=== PATIENT | female | born 1950 | race Caucasian/White ===

== ENCOUNTER 2020-01-24 10:00 | Day surgery (SDC) | payer MEDICARE ==
[~2020-01-24 10:00] MED LIST: ASPI81TA52 PO; ATOR40TA PO; CARV3.12 PO; FURO-150 PO; LISI-600 PO; METF500T PO; POTA10TA19 PO; VARE0.5T PO
[2020-01-24] MEDS ORDERED: LIDOcaine 2% 5ml jelly ONE (10:54)
== END 2020-01-24 11:48 | disposition home or self-care (01) ==
LOC: WOUND CARE 10:00
PROVIDERS: ATTEND Nurse Practitioner
DX: E11.621 Type 2 diabetes mellitus with foot ulcer (principal); L97.522 Non-pressure chronic ulcer of other part of left foot with fat layer exposed; E11.22 Type 2 diabetes mellitus with diabetic chronic kidney disease; I13.0 Hypertensive heart and chronic kidney disease with heart failure and stage 1 through stage 4 chronic kidney disease, or unspecified chronic kidney disease; I50.9 Heart failure, unspecified; N18.30 Chronic kidney disease, stage 3 unspecified; E11.69 Type 2 diabetes mellitus with other specified complication; M86.9 Osteomyelitis, unspecified; E78.5 Hyperlipidemia, unspecified; I42.9 Cardiomyopathy, unspecified; F17.200 Nicotine dependence, unspecified, uncomplicated; F15.90 Other stimulant use, unspecified, uncomplicated; Z90.49 Acquired absence of other specified parts of digestive tract; Z79.82 Long term (current) use of aspirin; Z79.84 Long term (current) use of oral hypoglycemic drugs; Z79.899 Other long term (current) drug therapy
CPT/HCPCS: 36416; 82948; 97597; 97598

== ENCOUNTER 2020-02-07 12:08 | Outpatient (CLI) | payer MEDICARE ==
[2020-02-07] MEDS ORDERED: LIDOcaine 2% 5ml jelly ONE (12:34)
[2020-02-07 13:41] LABS: BASOPHILS % (AUTO) 0.4 % (0-1); EOSINOPHILS # (AUTO) 0.3 X10'3 (0-0.9); EOSINOPHILS % (AUTO) 2.8 % (0-6); HEMATOCRIT 36.8 % (35.0-45.0); HEMOGLOBIN 11.7 g/dl (12.0-16.0); LYMPHOCYTES # (AUTO) 2.7 X10'3 (1.1-4.8); MEAN CORPUSCULAR HEMOGLOBIN 27.9 PG (27.0-31.0); MEAN CORPUSCULAR HGB CONC 31.7 g/dL (33.0-36.5); MEAN CORPUSCULAR VOLUME 88.2 FL (78-98); MEAN PLATELET VOLUME 8.8 FL (7.4-10.4); MONOCYTES % (AUTO) 8.7 % (2-12); NEUTROPHILS # (AUTO) 7.5 X10'3 (1.8-7.7); NEUTROPHILS % (AUTO) 65.1 % (42-75); PLATELET COUNT 290 X10'3 (140-440); RED BLOOD COUNT 4.17 X10'6 (4.20-5.60); RED CELL DISTRIBUTION WIDTH 15.6 % (11.5-14.5); WHITE BLOOD COUNT 11.6 X10'3 (4.5-11.0)
[2020-02-07 14:01] LABS: ALANINE AMINOTRANSFERASE 13 U/L (12-78); ALBUMIN 3.2 G/DL (3.4-5.0); ALBUMIN/GLOBULIN RATIO 0.7 (1.1-1.5); ALKALINE PHOSPHATASE 99 IU/L (46-116); ANION GAP 13 (8-16); ASPARTATE AMINO TRANSFERASE 18 U/L (10-37); BILIRUBIN,TOTAL 0.4 MG/DL (0.1-1.0); BLOOD UREA NITROGEN 16 MG/DL (7-18); BUN/CREATININE RATIO 10.2 (6.6-38.0); C-REACTIVE PROTEIN 5.38 MG/DL (0.0-0.5); CALCIUM 9.2 MG/DL (8.5-10.1); CHLORIDE 104 MMOL/L (99-107); CREATININE 1.57 MG/DL (0.40-0.90); GLUCOSE 96 MG/DL (70-104); POTASSIUM 4.4 MMOL/L (3.5-5.1); SODIUM 142 MMOL/L (135-145); TOTAL CARBON DIOXIDE 25.3 MMOL/L (24-32); TOTAL PROTEIN 8.1 G/DL (6.4-8.2); eGFR 33 ML/MIN
[2020-02-07 16:12] LABS: HEMOGLOBIN A1C 6.8 % (4.5-6.2)
== END 2020-02-07 23:59 | disposition home or self-care (01) ==
LOC: WOUND CARE 12:08
PROVIDERS: ATTEND Nurse Practitioner
DX: E11.621 Type 2 diabetes mellitus with foot ulcer (principal); L97.523 Non-pressure chronic ulcer of other part of left foot with necrosis of muscle; E11.22 Type 2 diabetes mellitus with diabetic chronic kidney disease; I13.0 Hypertensive heart and chronic kidney disease with heart failure and stage 1 through stage 4 chronic kidney disease, or unspecified chronic kidney disease; N18.30 Chronic kidney disease, stage 3 unspecified; I50.9 Heart failure, unspecified; M86.9 Osteomyelitis, unspecified; E78.5 Hyperlipidemia, unspecified; I42.9 Cardiomyopathy, unspecified; F17.200 Nicotine dependence, unspecified, uncomplicated; F15.90 Other stimulant use, unspecified, uncomplicated; Z90.49 Acquired absence of other specified parts of digestive tract; Z79.82 Long term (current) use of aspirin; Z79.84 Long term (current) use of oral hypoglycemic drugs; Z79.899 Other long term (current) drug therapy
CPT/HCPCS: 11043; 36415; 36416; 73630; 80053; 82948; 83036; 85025; 85651; 86140; 87070; 87075; 87077; 87102; 87186

== ENCOUNTER → 2020-02-14 | Outpatient (CLI) | payer MEDICARE ==
[~2020-02-14] MED LIST changes: +LIDOcaine 2% 5ml jelly ONE
== END | disposition home or self-care (01) ==
LOC: WOUND CARE 12:04 → EDSTATUS 12:20
PROVIDERS: ATTEND Nurse Practitioner
DX: E11.621 Type 2 diabetes mellitus with foot ulcer (principal); L97.523 Non-pressure chronic ulcer of other part of left foot with necrosis of muscle; E11.65 Type 2 diabetes mellitus with hyperglycemia; E11.69 Type 2 diabetes mellitus with other specified complication; E11.40 Type 2 diabetes mellitus with diabetic neuropathy, unspecified; I13.0 Hypertensive heart and chronic kidney disease with heart failure and stage 1 through stage 4 chronic kidney disease, or unspecified chronic kidney disease; N18.30 Chronic kidney disease, stage 3 unspecified; I50.9 Heart failure, unspecified; M86.9 Osteomyelitis, unspecified; E78.5 Hyperlipidemia, unspecified; I42.9 Cardiomyopathy, unspecified; F17.200 Nicotine dependence, unspecified, uncomplicated; F15.90 Other stimulant use, unspecified, uncomplicated; Z90.49 Acquired absence of other specified parts of digestive tract; Z79.82 Long term (current) use of aspirin; Z79.84 Long term (current) use of oral hypoglycemic drugs; Z79.899 Other long term (current) drug therapy
CPT/HCPCS: 11043; 36416; 82948

== ENCOUNTER 2020-08-11 10:17 | Emergency (ER) | payer MEDICARE ==
[~2020-08-11] VITALS: Ht 170.2 cm; Wt 77.3 kg
[~2020-08-11 10:17] MED LIST changes: -LIDOcaine 2% 5ml jelly ONE; -LISI-600 PO; +LISI20TA28 PO
[2020-08-11] MEDS ORDERED: normal saline 1000ML IV soln IV ONE (10:55)
[2020-08-11] MEDS ORDERED: piperacillin/tazo 3.375gm/50ml 50 ML IV ONE (10:55)
[2020-08-11] MEDS ORDERED: vancomycin/NS 1 GM ADD-VANTAGE 250 ML IV ONE (10:55)
[2020-08-11 11:32] LABS: BASOPHILS # (AUTO) 0.1 X10'3 (0-0.2); BASOPHILS % (AUTO) 0.6 % (0-1); EOSINOPHILS # (AUTO) 0.2 X10'3 (0-0.9); HEMATOCRIT 27.4 % (35.0-45.0); HEMOGLOBIN 8.6 g/dl (12.0-16.0); LYMPHOCYTES # (AUTO) 2.2 X10'3 (1.1-4.8); LYMPHOCYTES % (AUTO) 11.3 % (21-51); MEAN CORPUSCULAR HEMOGLOBIN 26.5 PG (27.0-31.0); MEAN CORPUSCULAR HGB CONC 31.3 g/dL (33.0-36.5); MEAN CORPUSCULAR VOLUME 84.6 FL (78-98); MEAN PLATELET VOLUME 8.8 FL (7.4-10.4); MONOCYTES # (AUTO) 1.2 X10'3 (0-0.9); MONOCYTES % (AUTO) 5.9 % (2-12); NEUTROPHILS # (AUTO) 15.9 X10'3 (1.8-7.7); NEUTROPHILS % (AUTO) 81.2 % (42-75); PLATELET COUNT 468 X10'3 (140-440); RED BLOOD COUNT 3.24 X10'6 (4.20-5.60); RED CELL DISTRIBUTION WIDTH 18.3 % (11.5-14.5); WHITE BLOOD COUNT 19.6 X10'3 (4.5-11.0)
[2020-08-11 11:54] LABS: ALANINE AMINOTRANSFERASE 21 U/L (12-78); ALBUMIN 2.1 G/DL (3.4-5.0); ALBUMIN/GLOBULIN RATIO 0.4 (1.1-1.5); ALKALINE PHOSPHATASE 116 IU/L (46-116); ANION GAP 11 (8-16); ASPARTATE AMINO TRANSFERASE 22 U/L (10-37); BILIRUBIN,TOTAL 0.3 MG/DL (0.1-1.0); BLOOD UREA NITROGEN 23 MG/DL (7-18); BUN/CREATININE RATIO 14.4 (6.6-38.0); CALCIUM 8.6 MG/DL (8.5-10.1); CHLORIDE 99 MMOL/L (99-107); GLUCOSE 140 MG/DL (70-104); POTASSIUM 4.5 MMOL/L (3.5-5.1); SODIUM 136 MMOL/L (135-145); TOTAL CARBON DIOXIDE 25.7 MMOL/L (24-32); TOTAL PROTEIN 7.8 G/DL (6.4-8.2); eGFR 32 ML/MIN
--- NOTE | 2020-08-11 12:06 | NUR ---
VASAyaan AT BEDSIDE, HAS FINISHED.
[2020-08-11 13:41] LABS: URINE AMPHETAMINE SCREEN NEGATIVE (Neg); URINE BARBITUATE SCREEN NEGATIVE (Neg); URINE BENZODIAZEPINES SCREEN NEGATIVE (Neg); URINE CANNABINOID SCREEN NEGATIVE (Neg); URINE COCAINE SCREEN NEGATIVE (Neg); URINE METHADONE SCREEN NEGATIVE (Neg); URINE OPIATE SCREEN POSITIVE (Neg); URINE PHENCYCLIDINE SCREEN NEGATIVE (Neg)
[2020-08-11] MEDS ORDERED: morphine 4 MG/ML inj SYRINge IV ONE (14:00)
[2020-08-11] MEDS ORDERED: normal saline 1000ML IV soln IVB ONE (14:05)
[2020-08-11 15:52] VITALS: BP 104/71
== END 2020-08-11 15:55 | disposition short-term general hospital (02) ==
LOC: ER 10:18
DX: S31.104A Unspecified open wound of abdominal wall, left lower quadrant without penetration into peritoneal cavity, initial encounter (principal); Z20.822 Contact with and (suspected) exposure to COVID-19; A41.9 Sepsis, unspecified organism; E11.59 Type 2 diabetes mellitus with other circulatory complications; I10 Essential (primary) hypertension; Z90.89 Acquired absence of other organs; Z90.49 Acquired absence of other specified parts of digestive tract; Z98.890 Other specified postprocedural states; Z56.0 Unemployment, unspecified; Z79.82 Long term (current) use of aspirin; Z79.4 Long term (current) use of insulin; Z79.899 Other long term (current) drug therapy; X58.XXXA Exposure to other specified factors, initial encounter; Y93.89 Activity, other specified; Y92.89 Other specified places as the place of occurrence of the external cause; Y99.8 Other external cause status
CPT/HCPCS: 36415; 51702; 80053; 80305; 83605; 84145; 85025; 87040; 87077; 87186; 87635; 93005; 93922; 93926; 96361; 96365; 96366; 96368; 96375; 99291; C9803; J2270; J2543; J3370; J7030

== ENCOUNTER 2022-01-04 01:19 | Inpatient (IN) | payer MEDICARE ==
[~2022-01-04] VITALS: Ht 170.2 cm; Wt 77.4 kg
[2022-01-04] VITALS (15 sets, daily range): BP systolic 73–155; BP diastolic 40–70
[~2022-01-04 01:19] MED LIST changes: +POTA-192 PO; -POTA10TA19 PO
[2022-01-04] MEDS: K and/or MAG REPLACEMENT MC SCH ×2 (01:44→20:59)
[2022-01-04] MEDS ORDERED: normal saline 1000ML IV soln IVB ONE ×2 (02:05)
[2022-01-04] MEDS ORDERED: piperacillin/tazo 3.375gm/50ml 50 ML IV ONE (02:05)
[2022-01-04] MEDS ORDERED: vancomycin/NS 1 GM ADD-VANTAGE 250 ML IV ONE (02:05)
[2022-01-04 02:06] LABS: MEAN CORPUSCULAR HGB CONC 32.1 g/dL (33.0-36.5)
[2022-01-04 02:08] LABS: BASOPHILS # (AUTO) 0.1 X10'3 (0-0.2); BASOPHILS % (AUTO) 0.3 % (0-1); EOSINOPHILS % (AUTO) 0.1 % (0-6); HEMATOCRIT 41.3 % (35.0-45.0); HEMOGLOBIN 13.2 g/dl (12.0-16.0); LYMPHOCYTES # (AUTO) 0.6 X10'3 (1.1-4.8); LYMPHOCYTES % (AUTO) 2.9 % (21-51); MEAN CORPUSCULAR HEMOGLOBIN 26.7 PG (27.0-31.0); MEAN CORPUSCULAR VOLUME 83.3 FL (78-98); MEAN PLATELET VOLUME 8.9 FL (7.4-10.4); MONOCYTES # (AUTO) 0.4 X10'3 (0-0.9); NEUTROPHILS # (AUTO) 19.2 X10'3 (1.8-7.7); NEUTROPHILS % (AUTO) 94.7 % (42-75); PLATELET COUNT 483 X10'3 (140-440); RED BLOOD COUNT 4.96 X10'6 (4.20-5.60); RED CELL DISTRIBUTION WIDTH 16.6 % (11.5-14.5); WHITE BLOOD COUNT 20.3 X10'3 (4.5-11.0)
[2022-01-04] MEDS ORDERED: acetaminophen 325mg tablet PO ONE (02:10)
[2022-01-04 02:21] LABS: ALANINE AMINOTRANSFERASE 18 U/L (12-78); ALBUMIN/GLOBULIN RATIO 0.5 (1.1-1.5); ALKALINE PHOSPHATASE 116 IU/L (46-116); ANION GAP 12 (8-16); ASPARTATE AMINO TRANSFERASE 18 U/L (10-37); BILIRUBIN,TOTAL 0.5 MG/DL (0.1-1.0); BLOOD UREA NITROGEN 24 MG/DL (7-18); BUN/CREATININE RATIO 13.2 (6.6-38.0); CALCIUM 9.1 MG/DL (8.5-10.1); CHLORIDE 92 MMOL/L (99-107); CREATININE 1.82 MG/DL (0.40-0.90); GLUCOSE 187 MG/DL (70-104); POTASSIUM 3.5 MMOL/L (3.5-5.1); SODIUM 135 MMOL/L (135-145); TOTAL CARBON DIOXIDE 30.6 MMOL/L (24-32); TOTAL PROTEIN 9.1 G/DL (6.4-8.2); eGFR 28 ML/MIN
[2022-01-04] MEDS ORDERED: aspirin 325mg tablet PO ONE ×2 (02:30→03:20)
[2022-01-04 03:08] LABS: C-REACTIVE PROTEIN 23.29 MG/DL (0.0-0.5)
[2022-01-04] MEDS: normal saline 1000ml 1,000 ML IV SCH ×2 (03:40→23:40)
[2022-01-04] MEDS ORDERED: magnesium 2GM in 50ml NS 50 ML IV PRN (03:40)
[2022-01-04] MEDS ORDERED: ondansetron/PF 4mg/2ml inj IV PRN ×2 (03:40→15:40)
[2022-01-04] MEDS ORDERED: magnesium 4gm in 100ml NS 100 ML IV PRN (03:40)
[2022-01-04] MEDS ORDERED: magnesium Cl slow-release 64mg tablet PO PRN (03:40)
[2022-01-04] MEDS ORDERED: acetaminophen 325mg tablet PO PRN (03:40)
[2022-01-04] MEDS ORDERED: POTASSIUM BICARB 20meq eff tab 20 MEQ TABLET.EFF PO PRN (03:40)
[2022-01-04] MEDS ORDERED: magnesium hydroxide 30ml (MOM) UD suspension PO PRN (03:40)
[2022-01-04] MEDS ORDERED: morphine 2 MG/ML inj. syringe IV PRN ×2 (03:40→15:40)
[2022-01-04] MEDS ORDERED: PERFLUTREN PROTEIN-A MICROSPHR (Optison) 0.22 MG/ML 3ML VIAL IV ONE (03:40)
[2022-01-04] MEDS ORDERED: mag hydrox/Alum hydrox/simeth 30ml oral suspension PO PRN (03:40)
[2022-01-04] MEDS ORDERED: MESSAGE TO PHARMACY PO ONE (03:50)
[2022-01-04] MEDS ORDERED: dextrose 50%-water 50ml dispensing syringe IV PRN ×2 (03:50)
[2022-01-04] MEDS ORDERED: glucagon, human recombinant 1mg kit SUBCUT PRN (03:50)
[2022-01-04] MEDS ORDERED: DEXTROSE 15 GM of carb/4 tabs (each vial/BOTTLE has 4 tablets) PO PRN ×2 (03:50)
[2022-01-04] MEDS ORDERED: insulin Lispro (HumaLOG) vial - multi-dose SQ SCH (03:50)
[2022-01-04] MEDS ORDERED: PERFLUTREN PROTEIN-A MICROSPHR (Optison) 0.22 MG/ML 3ML VIAL IV PRN (04:10)
[2022-01-04 04:22] LABS: HEMOGLOBIN A1C 6.6 % (4.5-6.2)
[2022-01-04 04:43] LABS: CLARITY,URINE SLIGHTLY CLOUDY (Clear); COLOR,URINE YELLOW (Yellow); GLUCOSE, URINE NEGATIVE (Neg); KETONES,URINE NEGATIVE (Neg); LEUKOCYTE ESTERASE ,URINE SMALL (Neg); NITRITES, URINE POSITIVE (Neg); OCCULT BLOOD,URINE MODERATE (Neg); PH,URINE 5.5 (4.8-8.0); PROTEIN,URINE NEGATIVE (Neg)
[2022-01-04 04:44] LABS: UA COLLECTION TYPE CLN CATCH MIDSTREAM
[2022-01-04 04:49] LABS: BACTERIA,URINE 4+ /HPF (Neg); SQUAMOUS EPITHELIAL CELL,UR MANY /LPF (FEW)
[2022-01-04 04:50] LABS: WBC,URINE 20-30 /HPF (0-4)
[2022-01-04] MEDS: docusate sod 100mg capsule PO SCH ×2 (08:00→19:52)
[2022-01-04] MEDS: heparin, porcine 5000 units/ml vial SQ SCH ×2 (08:00→16:00)
[2022-01-04] MEDS ORDERED: GABA600T13 PO (08:37)
[2022-01-04] MEDS: piperacillin/tazo 3.375gm/50ml 50 ML IV SCH ×2 (12:34→18:00)
[2022-01-04] MEDS ORDERED: midazolam 1 mg/ML 2ml injection ONE (13:40)
[2022-01-04] MEDS ORDERED: fentaNYL /PF 50mcg/ml 5ml ampule ONE (13:40)
[2022-01-04] MEDS ORDERED: sevoflurane 250ml liquid IH ONE (13:54)
[2022-01-04] MEDS ORDERED: albuterol 60 PUFF/8GM Inhaler IH ONE (13:54)
[2022-01-04] MEDS ORDERED: ePHEDrine 50MG/ML INJ. ONE (13:54)
[2022-01-04] MEDS ORDERED: PHENYLephrine 10mg/ml 5ml injection IV ONE (13:54)
[2022-01-04] MEDS ORDERED: ondansetron/PF 4mg/2ml inj ONE (14:53)
[2022-01-04] MEDS ORDERED: dexamethasone sod phosphate 4mg/ml inj. ONE (14:53)
[2022-01-04] MEDS ORDERED: etomidate 2mg/ml inj. ONE (14:53)
[2022-01-04] MEDS ORDERED: rocuronium 10mg/ml inj IV ONE (14:53)
[2022-01-04] MEDS ORDERED: albumin (Human) 5% 250ml 750 ML IV ONE (14:53)
[2022-01-04] MEDS ORDERED: LIDOcaine 2% (20mg/ml) 5ml vial ONE (14:53)
[2022-01-04] MEDS ORDERED: sugammadex 200mg/2ml injection IV ONE (15:11)
[2022-01-04] MEDS ORDERED: ipratropium/albuterol 3ml nebule NEB PRN (15:30)
[2022-01-04] MEDS ORDERED: ringers solution, lacted 1,000 ML IV SCH (15:40)
[2022-01-04] MEDS ORDERED: HYDROmorphone/PF 0.2 MG/ML SYRINGE IV PRN (15:40)
[2022-01-04 15:53] LABS: ABG BASE EXCESS 1.1 mmol/L (-2.0-2.0); ABG HCO3 28.2 mmol/L (22.0-26.0); ABG PCO2 (T) 57.8 mmHg (32.0-45.0); ABG PO2 (T) 133.6 mmHg (75.0-100.0); FCOHb 0.3 % (0.0-3.9); FLOW 8 L/min; FMetHb 0.2 % (0.0-1.5); FO2Hb 97.5 % (94-97); TOTAL HEMOGLOBIN 10.6 G/dl (12.0-16.0)
[2022-01-04] MEDS ORDERED: clindamycin-Cleocin 900mg/D5W 50 ML IV SCH (16:00)
[2022-01-04] MEDS: HYDROmorphone/PF 0.2 MG/ML SYRINGE IV PRN ×2 (16:34→17:16)
[2022-01-04] MEDS ORDERED: ringers solution, lacted 1,000 ML IV ONE (17:45)
[2022-01-04] MEDS: morphine 2 MG/ML inj. syringe IV PRN (19:52)
[2022-01-04] MEDS: ringers solution, lacted 1,000 ML IV SCH (20:30)
[2022-01-04] MEDS: insulin glargine (Lantus) pen - multi-dose SQ SCH (21:00)
[2022-01-04] MEDS ORDERED: gabapentin 400mg capsule PO SCH (21:00)
[2022-01-04] MEDS ORDERED: gabapentin 300mg capsule PO ONE (21:15)
[2022-01-04] MEDS ORDERED: HYDROcodone/acetaminophen 10/325mg tab PO PRN (21:40)
[2022-01-04] MEDS: HYDROcodone/acetaminophen 10/325mg tab PO PRN (21:40)
[2022-01-05] MEDS: ringers solution, lacted 1,000 ML IV SCH (00:25)
[2022-01-05] MEDS: VANCOMYCIN 750MG IV in NS 250 ML IV SCH (01:58)
[2022-01-05 02:00] VITALS: BP 144/79
[2022-01-05] MEDS: piperacillin/tazo 3.375gm/50ml 50 ML IV SCH ×3 (02:00→19:41)
[2022-01-05] MEDS: HYDROcodone/acetaminophen 10/325mg tab PO PRN ×3 (02:05→16:29)
[2022-01-05 05:56] LABS: BASOPHILS % (AUTO) 0.2 % (0-1); EOSINOPHILS % (AUTO) 0 % (0-6); HEMATOCRIT 28.9 % (35.0-45.0); HEMOGLOBIN 9.3 g/dl (12.0-16.0); LYMPHOCYTES # (AUTO) 1.2 X10'3 (1.1-4.8); LYMPHOCYTES % (AUTO) 7.8 % (21-51); MEAN CORPUSCULAR HEMOGLOBIN 27.1 PG (27.0-31.0); MEAN CORPUSCULAR HGB CONC 32.1 g/dL (33.0-36.5); MEAN CORPUSCULAR VOLUME 84.4 FL (78-98); MEAN PLATELET VOLUME 8.6 FL (7.4-10.4); MONOCYTES # (AUTO) 0.8 X10'3 (0-0.9); NEUTROPHILS # (AUTO) 13.3 X10'3 (1.8-7.7); PLATELET COUNT 330 X10'3 (140-440); RED BLOOD COUNT 3.43 X10'6 (4.20-5.60); RED CELL DISTRIBUTION WIDTH 16.4 % (11.5-14.5); WHITE BLOOD COUNT 15.3 X10'3 (4.5-11.0)
[2022-01-05 06:00] VITALS: BP 119/70
[2022-01-05 06:19] LABS: ALANINE AMINOTRANSFERASE 20 U/L (12-78); ALBUMIN 2.4 G/DL (3.4-5.0); ALBUMIN/GLOBULIN RATIO 0.6 (1.1-1.5); ALKALINE PHOSPHATASE 92 IU/L (46-116); ANION GAP 7 (8-16); ASPARTATE AMINO TRANSFERASE 36 U/L (10-37); BILIRUBIN,TOTAL 0.4 MG/DL (0.1-1.0); BLOOD UREA NITROGEN 15 MG/DL (7-18); BUN/CREATININE RATIO 12.7 (6.6-38.0); CALCIUM 7.5 MG/DL (8.5-10.1); CHLORIDE 108 MMOL/L (99-107); CREATININE 1.18 MG/DL (0.40-0.90); GLUCOSE 135 MG/DL (70-104); PHOSPHORUS 3.9 MG/DL (2.3-4.5); POTASSIUM 3.1 MMOL/L (3.5-5.1); SODIUM 145 MMOL/L (135-145); TOTAL CARBON DIOXIDE 29.9 MMOL/L (24-32); TOTAL PROTEIN 6.4 G/DL (6.4-8.2); eGFR 45 ML/MIN
[2022-01-05] MEDS: docusate sod 100mg capsule PO SCH ×2 (07:37→19:35)
[2022-01-05] MEDS: heparin, porcine 5000 units/ml vial SQ SCH ×3 (07:38→16:30)
[2022-01-05] MEDS: gabapentin 300mg capsule PO SCH ×2 (07:38→19:35)
[2022-01-05 11:00] VITALS: BP 124/80
[2022-01-05] MEDS: albuterol 2.5 MG/3 ML nebule NEB SCH ×4 (12:00→23:21)
[2022-01-05 15:00] VITALS: BP 121/76
[2022-01-05] MEDS ORDERED: ALBU1POW2 IH (15:39)
[2022-01-05] MEDS ORDERED: ASPI-1265 PO (15:39)
[2022-01-05 18:00] VITALS: BP 147/66
[2022-01-05] MEDS: K and/or MAG REPLACEMENT MC SCH (20:00)
[2022-01-05] MEDS: insulin glargine (Lantus) pen - multi-dose SQ SCH (20:53)
[2022-01-05] MEDS ORDERED: non-formulary drug (Albuterol 2 PUFFS) NEB PRN (21:50)
[2022-01-06] MEDS: heparin, porcine 5000 units/ml vial SQ SCH ×4 (00:14→23:04)
[2022-01-06] MEDS: ringers solution, lacted 1,000 ML IV SCH (00:23)
[2022-01-06] MEDS: HYDROcodone/acetaminophen 10/325mg tab PO PRN ×3 (01:37→21:12)
[2022-01-06] MEDS: VANCOMYCIN 750MG IV in NS 250 ML IV SCH (01:38)
[2022-01-06] MEDS: piperacillin/tazo 3.375gm/50ml 50 ML IV SCH ×2 (01:38→11:00)
[2022-01-06 02:00] VITALS: BP 151/79
[2022-01-06] MEDS: albuterol 2.5 MG/3 ML nebule NEB SCH ×6 (03:17→23:47)
[2022-01-06] MEDS: morphine 2 MG/ML inj. syringe IV PRN (05:15)
[2022-01-06 06:00] VITALS: BP 96/44
[2022-01-06 06:46] LABS: BASOPHILS # (AUTO) 0.1 X10'3 (0-0.2); BASOPHILS % (AUTO) 0.5 % (0-1); EOSINOPHILS # (AUTO) 0.2 X10'3 (0-0.9); EOSINOPHILS % (AUTO) 1.5 % (0-6); HEMATOCRIT 26.4 % (35.0-45.0); HEMOGLOBIN 8.6 g/dl (12.0-16.0); LYMPHOCYTES # (AUTO) 2.1 X10'3 (1.1-4.8); LYMPHOCYTES % (AUTO) 17.3 % (21-51); MEAN CORPUSCULAR HEMOGLOBIN 27.5 PG (27.0-31.0); MEAN CORPUSCULAR HGB CONC 32.4 g/dL (33.0-36.5); MEAN CORPUSCULAR VOLUME 84.8 FL (78-98); MEAN PLATELET VOLUME 8.5 FL (7.4-10.4); MONOCYTES # (AUTO) 0.8 X10'3 (0-0.9); MONOCYTES % (AUTO) 6.7 % (2-12); NEUTROPHILS # (AUTO) 9.1 X10'3 (1.8-7.7); PLATELET COUNT 330 X10'3 (140-440); RED BLOOD COUNT 3.11 X10'6 (4.20-5.60); RED CELL DISTRIBUTION WIDTH 16.3 % (11.5-14.5); WHITE BLOOD COUNT 12.3 X10'3 (4.5-11.0)
[2022-01-06 07:02] LABS: ALANINE AMINOTRANSFERASE 18 U/L (12-78); ALBUMIN/GLOBULIN RATIO 0.5 (1.1-1.5); ALKALINE PHOSPHATASE 78 IU/L (46-116); ANION GAP 7 (8-16); ASPARTATE AMINO TRANSFERASE 32 U/L (10-37); BILIRUBIN,TOTAL 0.4 MG/DL (0.1-1.0); BLOOD UREA NITROGEN 15 MG/DL (7-18); BUN/CREATININE RATIO 12.1 (6.6-38.0); CALCIUM 7.8 MG/DL (8.5-10.1); CHLORIDE 108 MMOL/L (99-107); CREATININE 1.24 MG/DL (0.40-0.90); GLUCOSE 122 MG/DL (70-104); MAGNESIUM 1.9 MG/DL (1.5-2.4); SODIUM 145 MMOL/L (135-145); TOTAL CARBON DIOXIDE 30.5 MMOL/L (24-32); TOTAL PROTEIN 5.8 G/DL (6.4-8.2); eGFR 43 ML/MIN
[2022-01-06 07:04] LABS: POTASSIUM 2.9 MMOL/L (3.5-5.1)
[2022-01-06] MEDS: aspirin 81mg tab.chew PO SCH (07:41)
[2022-01-06] MEDS: gabapentin 300mg capsule PO SCH ×3 (07:42→21:11)
[2022-01-06] MEDS: furosemide 20MG tablet PO SCH ×2 (07:42→21:12)
[2022-01-06] MEDS: docusate sod 100mg capsule PO SCH ×2 (07:42→21:12)
[2022-01-06] MEDS: atorvastatin 20mg tablet PO SCH (07:42)
[2022-01-06 07:48] VITALS: BP 130/68
[2022-01-06] MEDS: K and/or MAG REPLACEMENT MC SCH ×2 (08:00→20:00)
[2022-01-06] MEDS: potassium CL 10mEq/100ml bag 100 ML IV PRN ×4 (08:45→19:49)
[2022-01-06 12:00] VITALS: BP 134/80
[2022-01-06 15:00] VITALS: BP 105/55
[2022-01-06 18:00] VITALS: BP 151/73
[2022-01-06] MEDS: insulin glargine (Lantus) pen - multi-dose SQ SCH (21:00)
[2022-01-06] MEDS: POTASSIUM BICARB 20meq eff tab 20 MEQ TABLET.EFF PO PRN (22:45)
[2022-01-07] MEDS ORDERED: VANCOMYCIN LEVEL IV ONE (01:30)
[2022-01-07 02:00] VITALS: BP 145/79
[2022-01-07] MEDS: albuterol 2.5 MG/3 ML nebule NEB SCH ×4 (03:15→14:42)
[2022-01-07] MEDS: POTASSIUM BICARB 20meq eff tab 20 MEQ TABLET.EFF PO PRN (03:15)
[2022-01-07 06:00] VITALS: BP 151/77
[2022-01-07 06:22] LABS: BASOPHILS # (AUTO) 0.1 X10'3 (0-0.2); BASOPHILS % (AUTO) 0.9 % (0-1); EOSINOPHILS # (AUTO) 0.6 X10'3 (0-0.9); EOSINOPHILS % (AUTO) 4.7 % (0-6); HEMATOCRIT 28.1 % (35.0-45.0); HEMOGLOBIN 9.1 g/dl (12.0-16.0); LYMPHOCYTES # (AUTO) 2.8 X10'3 (1.1-4.8); LYMPHOCYTES % (AUTO) 24.1 % (21-51); MEAN CORPUSCULAR HEMOGLOBIN 27.3 PG (27.0-31.0); MEAN CORPUSCULAR HGB CONC 32.4 g/dL (33.0-36.5); MEAN CORPUSCULAR VOLUME 84.3 FL (78-98); MEAN PLATELET VOLUME 9.1 FL (7.4-10.4); MONOCYTES # (AUTO) 0.9 X10'3 (0-0.9); MONOCYTES % (AUTO) 7.5 % (2-12); NEUTROPHILS # (AUTO) 7.4 X10'3 (1.8-7.7); NEUTROPHILS % (AUTO) 62.8 % (42-75); PLATELET COUNT 411 X10'3 (140-440); RED BLOOD COUNT 3.33 X10'6 (4.20-5.60); RED CELL DISTRIBUTION WIDTH 16.7 % (11.5-14.5); WHITE BLOOD COUNT 11.7 X10'3 (4.5-11.0)
[2022-01-07 06:41] LABS: ALANINE AMINOTRANSFERASE 23 U/L (12-78); ALBUMIN 2.1 G/DL (3.4-5.0); ALBUMIN/GLOBULIN RATIO 0.5 (1.1-1.5); ALKALINE PHOSPHATASE 87 IU/L (46-116); ANION GAP 5 (8-16); ASPARTATE AMINO TRANSFERASE 36 U/L (10-37); BILIRUBIN,TOTAL 0.4 MG/DL (0.1-1.0); BLOOD UREA NITROGEN 11 MG/DL (7-18); BUN/CREATININE RATIO 10.8 (6.6-38.0); CHLORIDE 107 MMOL/L (99-107); CREATININE 1.02 MG/DL (0.40-0.90); GLUCOSE 73 MG/DL (70-104); PHOSPHORUS 3.2 MG/DL (2.3-4.5); POTASSIUM 4.1 MMOL/L (3.5-5.1); SODIUM 145 MMOL/L (135-145); TOTAL CARBON DIOXIDE 33.4 MMOL/L (24-32); TOTAL PROTEIN 6.5 G/DL (6.4-8.2); eGFR 54 ML/MIN
[2022-01-07] MEDS: K and/or MAG REPLACEMENT MC SCH (08:00)
[2022-01-07] MEDS ORDERED: HYDR-3972 PO (10:20)
[2022-01-07] MEDS: HYDROcodone/acetaminophen 10/325mg tab PO PRN ×2 (10:46→16:33)
[2022-01-07] MEDS: docusate sod 100mg capsule PO SCH (10:46)
[2022-01-07] MEDS: gabapentin 300mg capsule PO SCH (10:46)
[2022-01-07] MEDS: atorvastatin 20mg tablet PO SCH (10:46)
[2022-01-07] MEDS: furosemide 20MG tablet PO SCH (10:46)
[2022-01-07] MEDS: heparin, porcine 5000 units/ml vial SQ SCH (10:47)
[2022-01-07] MEDS: aspirin 81mg tab.chew PO SCH (10:47)
[2022-01-07 11:00] VITALS: BP 167/85
[2022-01-07 15:00] VITALS: BP 140/80
[2022-01-07] MEDS ORDERED: albuterol 2.5 MG/3 ML nebule NEB PRN (16:00)
== END 2022-01-07 17:31 | disposition home health service (06) | DRG 853 ==
LOC: ER 01:19 → ED HOLD 03:44 → ORTHO 4S 07:13 → PAS IN 15:55 → ICU 2S 18:18 → PCU 3S 01-05 00:37
PROVIDERS: ADMIT Internal Medicine; ATTEND Family Medicine
PROC: 05HM33Z Insertion of Infusion Device into Right Internal Jugular Vein, Percutaneous Approach (ICD-10-PCS; 2022-01-04)
PROC: 0Y6J0Z3 Detachment at Left Lower Leg, Low, Open Approach (ICD-10-PCS; principal; 2022-01-04 13:54)
DX: A41.9 Sepsis, unspecified organism (principal); E43 Unspecified severe protein-calorie malnutrition; M72.6 Necrotizing fasciitis; R65.21 Severe sepsis with septic shock; N17.9 Acute kidney failure, unspecified; D62 Acute posthemorrhagic anemia; I42.9 Cardiomyopathy, unspecified; L03.116 Cellulitis of left lower limb; I13.0 Hypertensive heart and chronic kidney disease with heart failure and stage 1 through stage 4 chronic kidney disease, or unspecified chronic kidney disease; Z20.822 Contact with and (suspected) exposure to COVID-19; E11.621 Type 2 diabetes mellitus with foot ulcer; D75.839 Thrombocytosis, unspecified; E11.40 Type 2 diabetes mellitus with diabetic neuropathy, unspecified; E11.51 Type 2 diabetes mellitus with diabetic peripheral angiopathy without gangrene; E11.65 Type 2 diabetes mellitus with hyperglycemia; E66.9 Obesity, unspecified; E11.22 Type 2 diabetes mellitus with diabetic chronic kidney disease; N18.9 Chronic kidney disease, unspecified; F17.210 Nicotine dependence, cigarettes, uncomplicated; E78.5 Hyperlipidemia, unspecified; I25.10 Atherosclerotic heart disease of native coronary artery without angina pectoris; I50.9 Heart failure, unspecified; F15.10 Other stimulant abuse, uncomplicated; L01.00 Impetigo, unspecified; L97.524 Non-pressure chronic ulcer of other part of left foot with necrosis of bone; Z79.82 Long term (current) use of aspirin; I25.2 Old myocardial infarction; Z79.84 Long term (current) use of oral hypoglycemic drugs; Z79.899 Other long term (current) drug therapy; Z90.49 Acquired absence of other specified parts of digestive tract; Z68.26 Body mass index [BMI] 26.0-26.9, adult; Z56.0 Unemployment, unspecified; Z89.412 Acquired absence of left great toe; F15.90 Other stimulant use, unspecified, uncomplicated
CPT/HCPCS: 36415; 36600; 71045; 73630; 80053; 81001; 82803; 82948; 83036; 83605; 83735; 83880; 84100; 84132; 84145; 84484; 85018; 85025; 86140; 87040; 87070; 87077; 87186; 87502; 87503; 87635; 88307; 93005; 93306; 94640; 94760; 96365; 97162; 97530; 99285; A4333; A4615; A4618; A6222; A6446; A6449; A7000; C1751; C9803; G0378; J1100; J1170; J1644; J1815; J2250; J2270; J2370; J2405; J2543; J3010; J3370; J3480; J3490; J7030; J7040; J7050; J7120; P9045